=== PATIENT | female | born 1975 | race Caucasian/White ===

== ENCOUNTER 2017-10-11 02:21 | Emergency (ER) | payer BC ==
[~2017-10-11] VITALS: Ht 177.8 cm; Wt 70.6 kg
[~2017-10-11 02:21] MED LIST: DIPH25CA37 PO; LORA-741 PO; MEDR150I19 IM; MULTTAB58 PO; NITR1CAP32 PO; VENL150T33 PO
[2017-10-11 02:24] VITALS: TEMP 36.6; Ht 177.8 cm; Wt 70.6 kg
[2017-10-11] MEDS ORDERED: LORAZEPAM 2 MG/ML 1 ML VIAL IV STA (02:30)
[2017-10-11] MEDS ORDERED: SODIUM CHLORIDE 0.9% 1000ML 1,000 ML IV ONE (02:30)
[2017-10-11 02:41] VITALS: O2SAT 100
[2017-10-11 02:45] LABS: BASO % 0.6 %; BASO ABS # 0.05 K/uL (0-0.2); EOS % 1.7 %; EOS ABS # 0.14 K/uL (0-0.5); HEMATOCRIT 43.5 % (37-47); HEMOGLOBIN 15.3 g/dL (12.0-16.0); IG# 0.01 K/uL (0.00-0.02); LYMPH % 29.3 %; LYMPH ABS # 2.43 K/uL (1.2-3.4); MEAN CELL VOLUME 86.3 fL (80-100); MEAN CORPUSCULAR HEMOGLOBIN 30.4 pg (25-34); MEAN CORPUSCULAR HGB CONC 35.2 g/dl (32-36); MEAN PLATELET VOLUME 10.1 fL (7.4-10.4); MONO % 4.7 %; MONO ABS # 0.39 K/uL (0.11-0.59); NEUT % 63.6 %; NEUT ABS # 5.28 K/uL (1.4-6.5); PLATELET COUNT 269 K/uL (130-400); RED CELL DISTRIBUTION WIDTH CV 12.7 % (11.5-14.5); RED CELL DISTRIBUTION WIDTH SD 40.5 fL (36.4-46.3)
[2017-10-11] MEDS ORDERED: VENL150T33 PO (02:54)
[2017-10-11] MEDS ORDERED: LISI-461 PO (02:56)
[2017-10-11] MEDS ORDERED: BCPILLS PO (02:57)
[2017-10-11 03:05] LABS: INR 0.9 (0.9-1.1); PTT PATIENT 25.9 SECONDS (21.0-31.0)
[2017-10-11 03:14] LABS: ALBUMIN 3.9 gm/dl (3.4-5.0); ALKALINE PHOSPHATASE 63 U/L (45-117); ALT/SGPT 36 U/L (12-78); AST/SGOT 23 U/L (15-37); BLOOD UREA NITROGEN 17 mg/dl (7-18); CALCIUM 9.4 mg/dl (8.5-10.1); CARBON DIOXIDE 21 mmol/L (21-32); CKMB < 0.5 ng/ml (0.5-3.6); CREATININE 1.04 mg/dl (0.60-1.20); GLUCOSE 76 mg/dl (70-99); LIPASE 145 U/L (73-393); POTASSIUM 3.7 mmol/L (3.5-5.1); SODIUM 136 mmol/L (136-145); TOTAL PROTEIN 8.6 gm/dl (6.4-8.2)
[2017-10-11] MEDS ORDERED: OPTIRAY 320 IV PRN (03:15)
[2017-10-11 05:51] VITALS: BP 155/102; PULSE 102; O2SAT 99
--- NOTE | 2017-10-11 06:49 | DIAGNOSTIC IMAGING REPORT ---
CHEST 2 VIEWS ROUTINE CLINICAL HISTORY: Chest pain. COMPARISON STUDY: No previous studies for comparison. FINDINGS: Lung volumes are normal. Lungs are clear. No pneumothorax or pleural effusion is noted. Cardiac size is normal. Mediastinal contours are normal. There is no evidence for pulmonary edema. IMPRESSION: No acute cardiopulmonary findings. Electronically signed by: Fran Keys M.D. 10/11/2017 6:48 AM Dictated Date/Time: 10/11/2017 6:47 AM
--- NOTE | 2017-10-11 06:58 | DIAGNOSTIC IMAGING REPORT ---
(CHEST FOR PE) ANGIO WITH CT DOSE: 219.28 mGy.cm HISTORY: 41 years-old Female presents with acute atypical chest pain and cardiac palpitations TECHNIQUE: Multiple CTA images of the chest were obtained after the intravenous administration of 94 ml Optiray 320. Coronal and sagittal MIPS were obtained from the axial data set and were submitted for review. A dose lowering technique was utilized adhering to the principles of ALARA. COMPARISON: Chest radiographs of same day. FINDINGS: CTA: There is adequate opacification of the pulmonary arteries to the level of the subsegmental branches without convincing evidence of acute pulmonary embolism. Thoracic aorta is normal in course and caliber without aneurysm or dissection.Heart size is normal. CT CHEST: No dominant thyroid nodule is seen. Minimal dependent subsegmental atelectasis. No pathologically adenopathy by CT size criteria. There is no pneumothorax, pleural effusion or focal airspace consolidation. The imaged upper abdominal structures are normal. The osseous structures appear intact. IMPRESSION: 1. No acute intrathoracic abnormality identified, specifically no acute aortic pathology or evidence of pulmonary thromboembolic disease. 2. No lobar airspace consolidation or pathologic adenopathy. The above report was generated using voice recognition software. It may contain grammatical, syntax or spelling errors. Electronically signed by: Wily Dotson M.D. 10/11/2017 6:56 AM Dictated Date/Time: 10/11/2017 6:52 AM
--- NOTE | 2017-10-11 07:27 | EMERGENCY ROOM VISIT NOTE ---
History First contact with patient: 02:27 Chief Complaint: CHEST PAIN Stated Complaint: CHEST PRESSURE, HIGH BP, SHAKINESS Nursing Triage Summary: c/o chest pressure and sob since noon got worse at 2000 unable to sleep. History of Present Illness The patient is a 41 year old female who presents to the Emergency Room with complaints of palpitations and chest discomfort that began greater than 12 hours ago. The patient states that she began having a jittery-like sensation in her arms and chest around 12 noon today. She states that she developed chest pressure and shakiness around bedtime at 8 PM. Patient has not been able to fall asleep because of her symptoms. She does have a history of anxiety but no history of cardiopulmonary disease. No recent travel history. She does not believe that she is as she takes control. The patient has not had fever or chills. Her discomfort is primarily left-sided and dull. She has not taken anything [id number] for her discomfort. 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 She rates her overall discomfort a 4/10. Review of Systems More than 10 systems were reviewed and otherwise negative with the exception of history of present illness. Past Medical/Surgical History No pertinent chronic medical disease Family History No pertinent family history Social History Smoking Status: Never Smoker Housing Status: lives with family Occupation Status: employed Current/Historical Medications Scheduled Control Pills ( Control Pills), 1 TAB PO DAILY Lisinopril (Zestril), 10 MG PO DAILY Venlafaxine Hcl (Venlafaxine Hcl Er), 175 MG PO DAILY Scheduled PRN Lorazepam (Ativan), 0.5 MG PO BID PRN for ANX/SLEEP Physical Exam Vital Signs Date Time Temp Pulse Resp B/P (MAP) Pulse Ox O2 Delivery O2 Flow Rate FiO2 10/11/17 05:51 102 20 155/102 99 10/11/17 04:52 104 18 150/98 100 Room Air 10/11/17 03:52 99 18 155/100 100 Room Air 10/11/17 03:23 117 18 156/96 100 Room Air 10/11/17 02:45 90 10/11/17 02:41 100 Room Air 10/11/17 02:41 97 20 156/109 100 Room Air 10/11/17 02:41 100 Room Air 10/11/17 02:24 36.6 110 20 164/93 100 Room Air Physical Exam VITALS: Vitals are noted on the nurse's note and reviewed by myself. Vital signs stable. GENERAL: Well-developed, well-nourished, white female who appears very anxious on examination. She is otherwise cooperative with examination. HEAD: Normocephalic atraumatic. NECK: Supple without nuchal rigidity. No lymphadenopathy. No thyromegaly. Cervical spine is nontender. HEART: Regular rate and rhythm without murmurs gallops or rubs. LUNGS: Clear to auscultation bilaterally without wheezes, rales or rhonchi. No retractions or accessory muscle use. ABDOMEN: Positive normal bowel sounds x 4. Soft, nontender, without masses or organomegaly. No guarding or rebound tenderness. MUSCULOSKELETAL: No muscle atrophy, erythema, or edema noted. Full range of motion in all extremities. No tenderness to palpation. Normal gait. Strength 5/5 throughout. NEURO: Patient was alert and oriented to person place and time. CN II through XII grossly intact. No focal neurological deficits. Medical Decision & Procedures ER Provider Diagnostic Interpretation: CHEST 2 VIEWS ROUTINE CLINICAL HISTORY: Chest pain. COMPARISON STUDY: No previous studies for comparison. FINDINGS: Lung volumes are normal. Lungs are clear. No pneumothorax or pleural effusion is noted. Cardiac size is normal. Mediastinal contours are normal. There is no evidence for pulmonary edema. IMPRESSION: No acute cardiopulmonary findings. (CHEST FOR PE) ANGIO WITH CT DOSE: 219.28 mGy.cm HISTORY: 41 years-old Female presents with acute atypical chest pain and cardiac palpitations TECHNIQUE: Multiple CTA images of the chest were obtained after the intravenous administration of 94 ml Optiray 320. Coronal and sagittal MIPS were obtained from the axial data set and were submitted for review. A dose lowering technique was utilized adhering to the principles of ALARA. COMPARISON: Chest radiographs of same day. FINDINGS: CTA: There is adequate opacification of the pulmonary arteries to the level of the subsegmental branches without convincing evidence of acute pulmonary embolism. Thoracic aorta is normal in course and caliber without aneurysm or dissection.Heart size is normal. CT CHEST: No dominant thyroid nodule is seen. Minimal dependent subsegmental atelectasis. No pathologically adenopathy by CT size criteria. There is no pneumothorax, pleural effusion or focal airspace consolidation. The imaged upper abdominal structures are normal. The osseous structures appear intact. IMPRESSION: 1. No acute intrathoracic abnormality identified, specifically no acute aortic pathology or evidence of pulmonary thromboembolic disease. 2. No lobar airspace consolidation or pathologic adenopathy. Laboratory Results 10/11/17 02:36 Red Blood Count 5.04, Mean Corpuscular Volume 86.3, Mean Corpuscular Hemoglobin 30.4, Mean Corpuscular Hemoglobin Concent 35.2, Mean Platelet Volume 10.1, Neutrophils (%) (Auto) 63.6, Lymphocytes (%) (Auto) 29.3, Monocytes (%) (Auto) 4.7, Eosinophils (%) (Auto) 1.7, Basophils (%) (Auto) 0.6, Neutrophils # (Auto) 5.28, Lymphocytes # (Auto) 2.43, Monocytes # (Auto) 0.39, Eosinophils # (Auto) 0.14, Basophils # (Auto) 0.05 10/11/17 02:36 Test 10/11/17 00:00 10/11/17 02:36 10/11/17 02:40 10/11/17 04:52 Urine Color YELLOW Urine Appearance CLEAR (CLEAR) Urine pH 5.0 (4.5-7.5) Urine Specific Bude 1.028 (1.000-1.030) Urine Protein NEG (NEG) Urine Glucose (UA) NEG (NEG) Urine Ketones 3+ (NEG) Urine Occult Blood NEG (NEG) Urine Nitrite NEG (NEG) Urine Bilirubin NEG (NEG) Urine Urobilinogen NEG (NEG) Urine Leukocyte Esterase NEG (NEG) White Blood Count 8.30 K/uL (4.8-10.8) Red Blood Count 5.04 M/uL (4.2-5.4) Hemoglobin 15.3 g/dL (12.0-16.0) Hematocrit 43.5 % (37-47) Mean Corpuscular Volume 86.3 fL (80-100) Mean Corpuscular Hemoglobin 30.4 pg (25-34) Mean Corpuscular Hemoglobin Concent 35.2 g/dl (32-36) Platelet Count 269 K/uL (130-400) Mean Platelet Volume 10.1 fL (7.4-10.4) Neutrophils (%) (Auto) 63.6 % Lymphocytes (%) (Auto) 29.3 % Monocytes (%) (Auto) 4.7 % Eosinophils (%) (Auto) 1.7 % Basophils (%) (Auto) 0.6 % Neutrophils # (Auto) 5.28 K/uL (1.4-6.5) Lymphocytes # (Auto) 2.43 K/uL (1.2-3.4) Monocytes # (Auto) 0.39 K/uL (0.11-0.59) Eosinophils # (Auto) 0.14 K/uL (0-0.5) Basophils # (Auto) 0.05 K/uL (0-0.2) RDW Standard Deviation 40.5 fL (36.4-46.3) RDW Coefficient of Variation 12.7 % (11.5-14.5) Immature Granulocyte % (Auto) 0.1 % Immature Granulocyte # (Auto) 0.01 K/uL (0.00-0.02) Prothrombin Time 9.4 SECONDS (9.0-12.0) Prothromb Time International Ratio 0.9 (0.9-1.1) Activated Partial Thromboplast Time 25.9 SECONDS (21.0-31.0) Partial Thromboplastin Ratio 1.0 Anion Gap 13.0 mmol/L (3-11) Est Creatinine Clear Calc Drug Dose 78.5 ml/min Estimated GFR () 78.4 Estimated GFR (Non- 67.6 BUN/Creatinine Ratio 16.3 (10-20) Calcium Level 9.4 mg/dl (8.5-10.1) Magnesium Level 1.9 mg/dl (1.8-2.4) Total Bilirubin 0.4 mg/dl (0.2-1) Aspartate Amino Transf (AST/SGOT) 23 U/L (15-37) Alanine Aminotransferase (ALT/SGPT) 36 U/L (12-78) Alkaline Phosphatase 63 U/L (45-117) Total Creatine Kinase 100 U/L (26-192) Creatine Kinase MB < 0.5 ng/ml (0.5-3.6) Creatine Kinase MB Ratio (0-3.0) Total Protein 8.6 gm/dl (6.4-8.2) Albumin 3.9 gm/dl (3.4-5.0) Globulin 4.7 gm/dl (2.5-4.0) Albumin/Globulin Ratio 0.8 (0.9-2) Lipase 145 U/L (73-393) Thyroid Stimulating Hormone (TSH) 5.990 uIu/ml (0.300-4.500) Bedside D-Dimer > 450 ng/mlFEU (0-450) Bedside Troponin I < 0.030 ng/ml (0-0.045) Medications Administered Medications (Trade) Dose Ordered Sig/Farshad Route Start Time Stop Time Status Last Admin Dose Admin Lorazepam (Ativan Inj) 1 mg NOW STAT IV 10/11/17 02:30 10/11/17 02:34 DC 10/11/17 02:49 1 MG Sodium Chloride 1,000 ml @ 999 mls/hr Q1H1M ONCE IV 10/11/17 02:30 10/11/17 03:30 DC 10/11/17 02:50 999 MLS/HR ECG Per My Interpretation Change: Sinus tachycardia @108bpm Right atrial enlargement Borderline ECG No previous ECGs available ED Course Physical exam and history were performed. Nursing notes, EMR, and Medication List were personally reviewed. Patient appears to have chest pain and palpitation symptoms that began several hours ago. On exam she does seem quite anxious. EKG was performed and was sinus tach without acute ST elevation as above. IV access was established and labs were obtained. The patient was hydrated with normal saline and given IV Ativan for comfort. Chest x-ray was performed and she was placed on a cardiac technologist. Patient's blood work is as above and was reviewed. She does not have a significantly elevated white blood cell count, gross anemia, bandemia, or significant electrolyte imbalance. Lipase and transaminases are not diagnostic. TSH is essentially euthyroid. Troponin 2 is negative. D-dimer is elevated and CT angiogram did not show evidence of acute pulmonary emboli. On reevaluation the patient did feel improved, and she was reassured. Her symptoms do not seem to be distinctly cardiopulmonary in nature, and could be related to stress or anxiety. I did recommend the patient follow-up in the next 1-2 days with her PCP for recheck. The patient was comfortable with this and otherwise invited back to the ER with any new, worsening, or concerning symptoms. The chart was completed utilizing [employer] Voice Recognition Software. Grammatical errors, random word insertions, pronoun errors, and incomplete sentences are an occasional consequence of this system due to software limitations, ambient noise, and hardware issues. Any formal questions or concerns about the content, text, or information contained within the body of this dictation should be directly addressed to the provider for clarification. . Medical Decision Differential diagnosis includes, but is not limited to: Myocardial infarction, dysrhythmia, pericarditis, pneumothorax, aortic aneurysm/dissection, DVT/PE, anxiety, GERD, PUD, electrolyte imbalance, thyroid disorder, pneumonia, bronchitis, pancreatitis, and others Impression Primary Impression: Precordial chest pain Additional Impression: Heart palpitations Departure Information Dispostion Home / Self-Care Condition GOOD Forms Call Back Authorization, HOME CARE DOCUMENTATION FORM, Work Instructions, Additional Instructions: Patient was seen and evaluated today in the emergency department fo medical care. Return to work on 10/16/2017. Please excuse. IMPORTANT VISIT INFORMATION Patient Instructions My [facility] Additional Instructions You were seen and evaluated today on an emergency basis only. This is not a substitute for, or an effort to provide, complete comprehensive medical care. It is not possible to recognize and treat all injuries or illnesses in a single emergency department visit. For this reason it is recommended that you followup with your primary care physician in the next 1-2 days for recheck. Drink plenty of fluids and remain well-hydrated. You are welcome to return to the emergency department anytime with new, worsening, or concerning symptoms. Work Instructions Additional Work Instructions: Patient was seen and evaluated today in the emergency department for medical care. Return to work on 10/16/2017. Please excuse. Problem Qualifiers
== END 2017-10-11 05:52 | disposition home or self-care (01) ==
LOC: C.EDB 02:22 → C.EDA 05:52
DX: R07.2 Precordial pain (principal); R00.2 Palpitations; F41.9 Anxiety disorder, unspecified; Z79.3 Long term (current) use of hormonal contraceptives; Z79.899 Other long term (current) drug therapy